=== PATIENT | male | born 1990 | race Caucasian/White ===

== ENCOUNTER 2021-03-02 14:20 | Emergency (ER) | payer MEDICAID, SELFPAY ==
[2021-03-02 14:26] VITALS: BP 134/86; PULSE 96; RESP 16; TEMP 37.1; O2SAT 98
--- NOTE | 2021-03-02 14:59 | ED.GENADUL_ITS ---
Discharge Plan Disposition Patient Disposition: HOME Condition: Stable Discharge Details Clinical Impression: Abrasion, corneal Primary Care Provider: None,None ED Provider: Kyle Thurman Home Meds and New Rx's Prescriptions: New erythromycin 5 mg/gram (0.5 %) ointment 0.5 inch ophthalmic (eye) QID Qty: 3.5 RF: 0 Discharge Instructions Instructions: Corneal Abrasion (ED) Additional Instructions: [id number] Tylenol and/or Motrin as directed for discomfort. Erythromycin eye ointment as directed. Avoid rubbing your eye. Please watch for new or worsening symptoms and return to the ER for any concerns. I am giving you the name and number of our local eye team, if symptoms not improving with conservative measures of the next 24-48 I recommend reaching out to the clinical reimbursement specialist. Referrals: [facility] [Outside] Medical Decision Making 30-year-old gentleman who does not wear contacts or glasses with scraping off snow and ice and had it brush across his eye. Mild discomfort and blurry vision. Visual acuity was 20/25 right eye, 20-30 left eye. Clinically he appears well, nontoxic. There appears to be no obvious global injury, hyphema, serious trauma, etc. Fluorescein uptake was present, mild left corneal abrasion. Will treat as such with Ilotycin and give [facility] eye referral if things are not improving over the next couple of days with conservative measures. Standard discharge and return precautions provided This documentation was generated using [employer] dictation system, please disregard any oddities of phrase or misspellings. Medical Records Medical records reviewed: Yes I reviewed the patient's medical records. HPI General Mode of arrival: ambulatory . Date/Time Provider Initiated Documentation: 03/02/21 14:20 . Limitations to Documentation: no limitations . Information obtained by: patient . HPI Narrative: This is a 30-year-old gentleman, denies significant past medical history, does not wear contacts or glasses, presenting for a left eye injury. He states this morning he was brushing snow and ice off a pipe when the piece of snow-ice which was small and light in nature flew off the pipe and struck him in the left eye. He reports mild left eye irritation, discomfort, blurry vision. He denies any other injury or headache. Related Data Home Medications Medication Instructions Recorded Confirmed erythromycin 0.5 inch OPHTHALMIC (EYE) QID #3.5 03/02/21 g Previous Rx's Medication Instructions Recorded erythromycin 0.5 inch OPHTHALMIC (EYE) QID #3.5 03/02/21 g Allergies Allergy/AdvReac Type Severity Reaction Status Date / Time No Known Allergies Allergy Verified 03/02/21 14:32 General Stated Complaint: EyeProblem MIKIE: 3 Review of Systems Constitutional Constitutional: Denies headache(s) Eyes Eyes: Reports blurry vision, Denies diplopia, Denies floaters and Reports irritation ENT Ears, Nose, Mouth, and Throat: Denies headache(s) Gastrointestinal Gastrointestinal: Denies nausea Musculoskeletal Musculoskeletal: Denies numbness and Denies tingling Neurologic Neurologic: Denies headache(s), Denies numbness and Denies tingling PFS Active Problem List Abrasion, corneal (Acute) Social History Smoking/Tobacco Use Status: Never Smoking risk assessment performed?: Yes Alcohol Intake: current Alcohol Intake frequency: 0-2 drinks per day Alcohol t ype: beer Drug use: Daily Substance use type: marijuana Do you feel safe at home: Yes Do you feel safe in your relationship?: Yes Exam Const General: cooperative, healthy appearing, comfortable and no acute distress Orientation: alert, awake and oriented x3 HENMT Head: normal to inspection, normocephalic and atraumatic Face and sinus: normal facial exam Mouth: moist mucous membranes Eyes Alignment and Position: alignment normal Periorbital: periorbital findings normal Eyelids: eyelids normal Conjunctivae: conjunctival abnormality left conjunctival injection (Diffuse, minimal) Sclera: sclerae normal Cornea: corneas abnormal on the left fluorescein used and abrasion and fluorescein used Pupils: PERRL EOM: EOM intact bilaterally Direct ophthalmoscopy: normal light reflex Eyes/upper lids images: 1. Fluorescein dye uptake Neck Neck: normal visual inspection, full ROM, trachea midline and supple Resp Effort & Inspection: normal respiratory effort and able to speak in complete sentences Skin General skin exam: no rashes or lesions noted Neuro General: patient alert, patient awake, moves all extremities and no focal motor deficits Sensory Exam: no sensory deficits noted Psych Appearance: grossly normal Mental Status: mental status grossly normal Course Vital Signs Vital signs: Vital Signs Temperature 37.1 C 03/02/21 14:26 Pulse 96 H 03/02/21 14:26 Respiratory Rate 16 03/02/21 14:26 Blood Pressure 134/86 03/02/21 14:26 Pulse Oximetry 98 03/02/21 14:26 Temperature 37.1 C 03/02/21 14:26 Temperature Source Temporal Artery Scan 03/02/21 14:26 Pulse 96 H 03/02/21 14:26 Respiratory Rate 16 03/02/21 14:26 Respiratory Effort Non-Labored 03/02/21 14:30 Blood Pressure 134/86 03/02/21 14:26 Blood Pressure Position Supine 03/02/21 14:26 Pulse Oximetry 98 03/02/21 14:26 Oxygen Delivery Method Room Air 03/02/21 14:26 Oxygen Flow Rate 0 03/02/21 14:26 Pain Level 1 03/02/21 14:26 PAWSS Have you Been Recently Intoxicated or Drunk Within the Last 30 days?: No Have you Ever Experienced Previous Episodes of Alcohol Withdrawal?: No Have you ever Experienced Withdrawal Seizures?: No Have you ever Experienced Delirium Tremens(DT)s?: No Have you ever undergone Alcohol Rehabilitation Treatment (i.e, inpt ot outpatient treatment programs)?: No Have you ever Experienced Blackouts?: No Have you ever Combined Alcohol with other Downers within the last 90 days?: No Have you ever Combined Alcohol with any other Substance of Abuse during the last 90 days?: No Positive Blood Alcohol level on Presentation? [PCS.BAL]: No Evidence of Increased Autonomic Activity (i.e. HR>120, tremor, sweating, agitation, nausea)?: No Result: 0
[2021-03-02] MEDS: Fluorescein STRIPS 100/BOX 1 MG (15:14)
[2021-03-02] MEDS: Tetracaine 0.5% 4 ML BTL (15:15)
== END 2021-03-02 15:09 | disposition home or self-care (01) ==
PROVIDERS: Emergency Provider Physician Assistant
DX: S05.02XA Injury of conjunctiva and corneal abrasion without foreign body, left eye, initial encounter (principal); W22.8XXA Striking against or struck by other objects, initial encounter
CPT/HCPCS: 99283